=== PATIENT | female | born 1970 | race Caucasian/White ===

== ENCOUNTER 2018-04-27 21:41 | Emergency (ER) | payer SELFPAY ==
--- NOTE | 2018-04-27 22:25 | EDPHY ---
H & P Stated Complaint: pt says ongoing vag bleed x9 mths, today having numb/tingling RUE Time Seen by Provider: 04/27/18 21:58 HPI/ROS: HPI The patient presents with vaginal bleeding for 9 months which has been daily, when it initially began it was fairly mild, however over the last 6 months it has been heavier, the patient uses 6-8 pads per day. She was having regular menses until this time. She has not undergone menopause that she is aware of. She does not have any pain with this. She does not have any vaginal discharge otherwise. She does have a history of an abnormal Pap in 2010 which she did not follow up on due to cost. She has not sought any medical care for this condition because she does not have health insurance. She also reports that when she awoke this morning she experienced tingling in her right fingers. This is in the thumb through pinky finger and does not involve her hand, she says she awoke this way and now when she touches her fingers they feel as if there tingling, however she does not feel paresthesias when she is not putting pressure on her digits. She does not have any weakness of her arms or legs. She does not have a headache, facial droop, difficulty swallowing. REVIEW OF SYSTEMS Constitutional: No fever, no chills. Eyes: No discharge. ENT: No sore throat. Cardiovascular: No chest pain, no palpitations. Respiratory: No cough, no shortness of breath. Gastrointestinal: No abdominal pain, no vomiting. Genitourinary: No hematuria. Musculoskeletal: No back pain. Skin: No rashes. Neurological: No headache. PMHx: None, not on any medications Soc Hx: Housed, cigarette smoker PHYSICAL General Appearance: Alert, no distress Eyes: Pupils equal and round no pallor or injection ENT, Mouth: Mucous membranes moist Respiratory: There are no retractions, lungs are clear to auscultation Cardiovascular: Regular rate and rhythm Gastrointestinal: Abdomen is soft and non-tender, no masses, bowel sounds normal Neurological: Alert and oriented x3, cranial nerves 2-12 intact, 5/5 strength in upper and lower extremities which is symmetric, there is decreased sensation to light touch throughout digits 1 through 5 on the right Skin: Warm and dry, no rashes Musculoskeletal: Neck is supple non tender Extremities: symmetrical, full range of motion Psychiatric: Patient is oriented X 3, there is no agitation Source: Patient Exam Limitations: No limitations - Medical/Surgical History Hx Asthma: No Hx Chronic Respiratory Disease: No Hx Diabetes: No Hx Cardiac Disease: Yes Hx Renal Disease: No Hx Cirrhosis: No Hx Alcoholism: No Hx HIV/AIDS: No Hx Splenectomy or Spleen Trauma: No Other PMH: [place], asthma, enlarged heart at - Social History Smoking Status: Current every day smoker Constitutional: Initial Vital Signs Temperature (C) 36.6 C 04/27/18 21:44 Heart Rate 83 04/27/18 21:44 Respiratory Rate 18 04/27/18 21:44 Blood Pressure 162/108 H 04/27/18 21:44 O2 Sat (%) 94 04/27/18 21:44 O2 Delivery Mode Room Air Allergies/Adverse Reactions: Penicillins Allergy (Verified 04/27/18 21:49) Home Medications: Medication Instructions Recorded NK [No Known Home Meds] 04/27/18 Medical Decision Making - Diagnostics Imaging Results: Imaging Impressions Pelvic/Renal Ultrasound 04/27/18 22:13 Impression: 1. Suspect adenomyosis. 2. Upper normal endometrial lining for perimenopausal woman. Recommend [employer] TECHNICIAN consultation given chronicity bleeding. 3. Normal ovaries. No adnexal mass. Findings discussed with Emergency Department physician, Tanika Jimenez MD at 04/27/2018 23:21. Imaging: I viewed and interpreted images myself Differential Diagnosis: 48-year-old female, has not receive medical care recently, presenting with 9 months of progressive vaginal bleeding which occurs daily, using 6-8 pads per day. This is associated with generalized fatigue and sleepiness. She has not had any weight loss or abdominal pain. Also since earlier this morning, she has tingling throughout her digits on her right hand. This does not follow any sort of dermatome. She has no neurologic deficits, except for subjective paresthesias. Differential diagnosis includes he radhika menopausal state, endometrial cancer, fibroids, neuropathy, doubt CVA given no true deficit. Labs were checked and she was found to have normal hemoglobin with elevated glucose level. She could have neuropathy causing her tingling in her digits. Her symptoms have resolved while here. Her ultrasound did not identify any clear cause of her vaginal bleeding. She will require follow-up for this. I have discussed with the patient the importance of seeking follow-up with a primary care physician. I suspect that she has undiagnosed hypertension, type 2 diabetes, and possibly hepatitis. No emergent conditions were identified today in the emergency department requiring admission. However, if her symptoms go unchecked, she may deteriorate. I have stressed this to her. [facility] and I also have put in a note for the counter caser. I have answered all of her questions. She will be discharged from the emergency department. - Data Points Laboratory Results: Laboratory Results 04/27/18 22:25 04/27/18 22:25 04/27/18 04/27/18 04/27/18 22:25 22:25 22:25 WBC RBC Hgb Hct MCV MCH MCHC RDW Plt Count MPV Neut % (Auto) Lymph % (Auto) [place] % (Auto) Eos % (Auto) Baso % (Auto) Nucleat RBC Rel Count Absolute Neuts (auto) Absolute Lymphs (auto) Absolute Monos (auto) Absolute Eos (auto) Absolute Basos (auto) Absolute Nucleated RBC Immature Gran % Immature Gran # PT 12.2 SEC SEC (12.0-15.0) INR 0.88 (0.83-1.16) APTT 25.6 SEC SEC (23.0-38.0) Sodium 134 mEq/L L mEq/L (135-145) Potassium 4.1 mEq/L mEq/L (3.3-5.0) Chloride 100 mEq/L mEq/L (97-110) Carbon Dioxide 25 mEq/l mEq/l (22-31) Anion Gap 9 mEq/L mEq/L (8-16) BUN 9 mg/dL mg/dL (7-23) Creatinine 0.7 mg/dL mg/dL (0.6-1.0) Estimated GFR > 60 Glucose 235 mg/dL H mg/dL (70-100) Calcium 8.5 mg/dL mg/dL (8.5-10.4) Total Bilirubin 0.8 mg/dL mg/dL (0.1-1.4) AST 95 IU/L H IU/L (14-46) ALT 135 IU/L H IU/L (9-52) Alkaline Phosphatase 100 IU/L IU/L (38-126) Total Protein 6.5 g/dL g/dL (6.3-8.2) Albumin 3.5 g/dL g/dL (3.5-5.0) Hepatitis A IgM Ab NEGATIVE (NEGATIVE) Hep Bs Antigen NEGATIVE (NEGATIVE) Hep B Core IgM Ab NEGATIVE (NEGATIVE) Hepatitis C Antibody NEGATIVE (NEGATIVE) 04/27/18 22:25 WBC 5.91 10^3/uL 10^3/uL (3.80-9.50) RBC 5.20 10^6/uL 10^6/uL (4.18-5.33) Hgb 16.6 g/dL H g/dL (12.6-16.3) Hct 48.2 % H % (38.0-47.0) MCV 92.7 fL fL (81.5-99.8) MCH 31.9 pg pg (27.9-34.1) MCHC 34.4 g/dL g/dL (32.4-36.7) RDW 12.3 % % (11.5-15.2) Plt Count 154 10^3/uL 10^3/uL (150-400) MPV 11.1 fL fL (8.7-11.7) Neut % (Auto) 57.3 % % (39.3-74.2) Lymph % (Auto) 33.0 % % (15.0-45.0) [place] % (Auto) 7.3 % % (4.5-13.0) Eos % (Auto) 1.5 % % (0.6-7.6) Baso % (Auto) 0.7 % % (0.3-1.7) Nucleat RBC Rel Count 0.0 % % (0.0-0.2) Absolute Neuts (auto) 3.39 10^3/uL 10^3/uL (1.70-6.50) Absolute Lymphs (auto) 1.95 10^3/uL 10^3/uL (1.00-3.00) Absolute Monos (auto) 0.43 10^3/uL 10^3/uL (0.30-0.80) Absolute Eos (auto) 0.09 10^3/uL 10^3/uL (0.03-0.40) Absolute Basos (auto) 0.04 10^3/uL 10^3/uL (0.02-0.10) Absolute Nucleated RBC 0.00 10^3/uL 10^3/uL (0-0.01) Immature Gran % 0.2 % % (0.0-1.1) Immature Gran # 0.01 10^3/uL 10^3/uL (0.00-0.10) PT INR APTT Sodium Potassium Chloride Carbon Dioxide Anion Gap BUN Creatinine Estimated GFR Glucose Calcium Total Bilirubin AST ALT Alkaline Phosphatase Total Protein Albumin Hepatitis A IgM Ab Hep Bs Antigen Hep B Core IgM Ab Hepatitis C Antibody Departure - Departure Disposition: Home, Routine, Self-Care Clinical Impression: Vaginal bleeding, Hyperglycemia, Elevated blood pressure reading, Transaminitis Condition: Good Instructions: Dysfunctional Uterine Bleeding (ED), Hypertension and Diabetes ( ED) Additional Instructions: You definitely need to have follow-up and begin seeking treatment with a primary care physician. Because of this, I have referred [facility]. I have also put in a referral for the counter caser who may be able to help you with this. Your labs today showed that you may be developing diabetes. You also have elevated liver tests which can be concerning for hepatitis. Year blood pressure is also elevated in you may benefit from blood pressure medications if it continues to be high. You're vaginal bleeding will need more evaluation. Referrals: [facility],. [Clinic] - As per Instructions
[2018-04-27 22:36] LABS: PLATELET COUNT 154 10^3/uL (150-400)
[2018-04-27 22:44] LABS: INR 0.88 (0.83-1.16); PROTIME(PATIENT) 12.2 SEC (12.0-15.0)
[2018-04-28 00:13] VITALS: BP 133/77
[2018-04-28 01:17] LABS: HEPATITIS A ANTIBODY IGM (BCH) NEGATIVE (NEGATIVE); HEPATITIS B CORE AB IGM NEGATIVE (NEGATIVE); HEPATITIS B SURFACE ANTIGEN NEGATIVE (NEGATIVE); HEPATITIS C ANTIBODY TOTAL NEGATIVE (NEGATIVE)
--- NOTE | 2018-04-28 19:07 | ASMTCMCOM ---
CM Note CM Note Notes: Received a CM consult request to follow up with patient re:establishing a PCP. Pt does not have insurance. Pt had been referred to [facility]. Spoke w/pt over the phone and encouraged her to call [facility] to get an appt soon and they will have her complete a financial screening and possible see if she qualifies for Medicaid. Pt states her works and makes too much money for her to qualify for Medicaid but she will have them screen her just in case. We also discussed pt possibly qualifying for Medicare due to her disabling scoliosis and other medical conditions. Pt states she has been applying and working on getting disability through [facility] since 2015. 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 Pt appreciative for call back and states she will call [facility] today to schedule a new patient appt. Date Signed: 04/28/2018 07:06 PM Electronically Signed By:Peg Avery RN
== END 2018-04-28 00:12 | disposition home or self-care (01) ==
DX: N93.9 Abnormal uterine and vaginal bleeding, unspecified (principal); R73.9 Hyperglycemia, unspecified; R03.0 Elevated blood-pressure reading, without diagnosis of hypertension; R74.0 Nonspecific elevation of levels of transaminase and lactic acid dehydrogenase [LDH]; I25.2 Old myocardial infarction; J45.909 Unspecified asthma, uncomplicated; F17.210 Nicotine dependence, cigarettes, uncomplicated
CPT/HCPCS: G0472